=== PATIENT | female | born 1965 | race Caucasian/White ===

== ENCOUNTER 2022-09-02 20:16 | Inpatient (IN) | payer OTHER ==
[2022-09-02 20:43] LABS: #Basophils 0.1 10x3/uL (0.0-0.2); #Eosinphils 0.1 10x3/uL (0.0-0.5); #Monocytes 0.6 10x3/uL (0.0-1.1); #Neutrophils 4.8 10x3/uL (1.5-8.4); %Basophils 0.8 % (0.0-2.0); %Eosinophils 1.1 % (0.0-6.0); %Lymphocytes 34.6 % (18.0-47.0); %Monocytes 6.5 % (0.0-10.0); %Neutrophils 56.6 % (40.0-75.0); Hemoglobin 13.7 g/dL (12.0-15.5); Mean Corpuscular HGB CONC 35.5 g/dL (32.0-36.0); Mean Corpuscular Hemoglobin 30.4 pg (27.0-33.0); Mean Corpuscular Volume 85.6 fl (81.6-98.3); Mean Platelet Volume 9.5 fl (7.4-10.4); Platelet Count 286 10x3/uL (150-450); RBC Distribution Width 11.6 % (11.5-14.5); Red Blood Cell (RBC) Count 4.51 10x6/uL (3.90-5.03); White Blood Cell (WBC) Count 8.6 10x3/uL (3.5-10.5)
[2022-09-02] MEDS ORDERED: Aspirin Chewable 81 MG TAB ONE (20:44)
[2022-09-02 20:54] LABS: INR-International Normal Ratio 0.9; PTT 23.6 sec (22.0-33.0); Prothrombin Time 9.7 sec (9.5-12.1)
[2022-09-02 21:01] LABS: ALT (SGPT) 74 U/L (8-55); AST (SGOT) 35 U/L (5-34); Albumin 4.6 g/dL (3.5-5.0); Alkaline Phosphatase 111 U/L (40-110); Anion Gap 14 mmol/L (10-20); BUN (Urea Nitrogen) 17 mg/dL (9.8-20.1); Bilirubin, Total 0.3 mg/dL (0.2-1.2); Calc. Creatinine Clearance 0 mL/min (70-130); Calcium 9.3 mg/dL (7.8-10.44); Carbon Dioxide 26 mmol/L (22-29); Chloride 106 mmol/L (98-107); Estimated GFR 74; Globulin 2.2 g/dL (2.4-3.5); Glucose 124 mg/dL (70-105); Lipase 39 U/L (8-78); Protein, Total 6.8 g/dL (6.0-8.3); Sodium 142 mmol/L (136-145)
[2022-09-02 22:13] VITALS: BMI 28.5
[2022-09-02] MEDS ORDERED: Nitroglycerin 0.4 MG TAB (25 Tab Bottle) SL PRN (22:40)
[2022-09-02] MEDS ORDERED: Zolpidem Tartrate 5 MG TAB PO PRN (22:44)
[2022-09-02] MEDS ORDERED: Atorvastatin Calcium 40 MG TAB PO SCH (23:00)
[2022-09-03 00:06] LABS: Troponin I 0.013 ng/mL (< 0.028)
[2022-09-03 02:57] LABS: Cardiac Risk 2.8 (Less than 4.5)
[2022-09-03 03:00] LABS: Troponin I 0.016 ng/mL (< 0.028)
[2022-09-03] MEDS ORDERED: Levothyroxine Sodium 75 MCG TAB PO SCH (06:00)
[2022-09-03] MEDS ORDERED: Aspirin Chewable 81 MG TAB ONE (06:59)
[2022-09-03] MEDS ORDERED: Metoprolol Tartrate 50 MG TAB PO SCH (09:00)
[2022-09-03] MEDS ORDERED: Aspirin Chewable 81 MG TAB PO SCH (09:00)
[2022-09-03] MEDS ORDERED: Atorvastatin Calcium 40 MG TAB PO SCH (09:00)
[2022-09-03] MEDS ORDERED: Aspirin 81 mg Enteric Coated Tablet PO SCH (09:00)
[2022-09-03] MEDS ORDERED: Enoxaparin Sodium 40 MG/0.4 ML SYRINGE SC SCH (09:00)
[2022-09-03] MEDS ORDERED: FLU VACC QS2022-23(6MOS UP)/PF 60 MCG/0.5 ML SYRINGE IM ONE (09:00)
[2022-09-03 09:07] VITALS: TEMP 97.3
[2022-09-03] MEDS ORDERED: Iopamidol 300 61% 100 ML VIAL FS ONE (09:28)
[2022-09-03 11:39] VITALS: BP 115/76
[2022-09-04] MEDS ORDERED: Amlodipine 5 MG TAB PO SCH (09:00)
== END 2022-09-03 12:25 | disposition home or self-care (01) | DRG 287 ==
LOC: CSHERS 20:16 → CSHTELE 22:05
PROVIDERS: ADMIT Family Medicine; ATTEND Family Medicine
PROC: 4A023N7 Measurement of Cardiac Sampling and Pressure, Left Heart, Percutaneous Approach (ICD-10-PCS; principal; 2022-09-03)
PROC: B2111ZZ Fluoroscopy of Multiple Coronary Arteries using Low Osmolar Contrast (ICD-10-PCS; 2022-09-03)
PROC: B2151ZZ Fluoroscopy of Left Heart using Low Osmolar Contrast (ICD-10-PCS; 2022-09-03)
DX: I25.110 Atherosclerotic heart disease of native coronary artery with unstable angina pectoris (principal); Z20.822 Contact with and (suspected) exposure to COVID-19; R51.9 Headache, unspecified; T46.3X5A Adverse effect of coronary vasodilators, initial encounter; E78.5 Hyperlipidemia, unspecified; E03.9 Hypothyroidism, unspecified; I10 Essential (primary) hypertension; Z79.899 Other long term (current) drug therapy; Z79.82 Long term (current) use of aspirin; Z79.890 Hormone replacement therapy; Z90.49 Acquired absence of other specified parts of digestive tract; Z90.710 Acquired absence of both cervix and uterus; Z82.49 Family history of ischemic heart disease and other diseases of the circulatory system
CPT/HCPCS: 71045; 80053; 80061; 83690; 83735; 84484; 85025; 85610; 85730; 93005; 93010; 93458; 99152; C1769; C1894; J1650; Q9967; U0003; U0005